=== PATIENT | male | born 1985 ===

== ENCOUNTER 2019-01-27 19:01 | Emergency (ER) | payer OTHER ==
[~2019-01-27] VITALS: Ht 175.3 cm; Wt 119.0 kg
[2019-01-27 19:46] VITALS: BP 152/91
== END 2019-01-27 22:00 | disposition left against medical advice (07) ==
LOC: ER 19:01
DX: F32.9 Major depressive disorder, single episode, unspecified (principal); Z53.21 Procedure and treatment not carried out due to patient leaving prior to being seen by health care provider